=== PATIENT | male | born 1995 | race Caucasian/White ===

== ENCOUNTER 2017-09-07 20:33 | Emergency (ER) | payer BC ==
[~2017-09-07] VITALS: Ht 177.8 cm; Wt 71.0 kg
[2017-09-07 20:36] VITALS: TEMP 36.6; Ht 177.8 cm; Wt 71.0 kg
--- NOTE | 2017-09-07 21:10 | EMERGENCY ROOM VISIT NOTE ---
History First contact with patient: 20:39 Chief Complaint: NECK INJURY Stated Complaint: NECK INJURY History of Present Illness The patient is a 22 year old male who presents to the Emergency Room with complaints of neck and back pain Patient reports that about an hour and half ago suffered a injury while goofing around with his friends. He states that his friend put a dog collar and leash around his neck and pulled upward. He says that he immediately felt sharp pains down his neck and back. The patient reports that he became very worried that he seriously injured his back. He denies any weakness or loss of sensation in his extremities. Since the injury, the patient says that the pain has begun to subside, but he reports that he still feels some tenderness done the left side of his back. He denies losing consciousness or being under the influence of drugs or alcohol. Patient denies depressed mood or suicide attempt. Review of Systems see below Eyes: No worsening of vision, No eye pain Respiratory: No shortness of breath, No dyspnea on exertion Cardiovascular: No chest pain, No edema, No palpitations Neurologic: No memory loss, No paralysis, No weakness, No numbness/tingling , No vertigo, No balance problems Past Medical/Surgical History Medical Problems: (1) Laceration of right forearm (2) Lyme disease Family History Patient reports no known family medical history. Social History Smoking Status: Never Smoker Alcohol Use: occasionally Housing Status: lives with family Occupation Status: [employer] student Current/Historical Medications No Active Prescriptions or Reported Meds Physical Exam Vital Signs Date Time Temp Pulse Resp B/P (MAP) Pulse Ox O2 Delivery O2 Flow Rate FiO2 09/07/17 20:36 36.6 82 16 140/85 99 Room Air Physical Exam see below General Appearance: WD/WN, no apparent distress Head: normocephalic, atraumatic Eyes: normal inspection, PERRL, EOMI, sclerae normal ENT: normal ENT inspection Neck: supple, no adenopathy, thyroid normal Respiratory/Chest: chest non-tender, lungs clear, normal breath sounds, no respiratory distress, no accessory muscle use Cardiovascular: regular rate, rhythm, no edema, no gallop, no JVD Back: normal inspection, no CVA tenderness, no muscle spasm, normal range of motion, + pertinent finding (paraspinal tenderness at the level of t3 ) 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 COMPARISON STUDY: No previous studies for comparison. FINDINGS: There is slight reversal of the normal cervical lordosis. No fracture is identified. Disc spaces are preserved. Facet joints appear intact. Prevertebral soft tissues are unremarkable. IMPRESSION: 1. No cervical spine fracture or subluxation identified. 2. Slight reversal of the normal cervical lordosis. ED Course 2099 performed history and physical exam 2114 ordered xray of the C spine 2129 reviewed cspine xray 2209 Patient discharged Medical Decision 22 yo male comes into the ED following an injury to his neck. The patient had a normal neurological exam. He endorsed some tenderness of the cervical spine. Considering the following differential; cervical radiculopathy, cervical spine fracture, muscle strain Ordered a cervical spine xray to evaluate for structural abnormalities. Patient denies depressed mood. He denies that this was a suicide attempt. Discussed with the patient regarding his c spine xray which was unremarkable for fracture or subluxation of spine. Patient was discharged with instructions to follow up in the ED if he experiences neurologic symptoms or persistent pain. Impression Primary Impression: Neck pain Departure Information Dispostion Home / Self-Care Condition GOOD Prescriptions No Active Prescriptions or Reported Meds Referrals No Doctor, Assigned (PCP) Patient Instructions My [facility] Additional Instructions You came into the ED after a neck injury. You had a normal neuro exam and normal xray of your cervical spine. You may have pain in the days following the injury. Please follow up with your primary care physician if the pain persist. Ibuprofen(Motrin, Advil) may be used for fever or pain. Use 600mg every six hours as needed. Take with food. Avoid using more than 2400mg in a 24 hour period. Do not use 2400mg per day for more than three consecutive days without physician direction. Prolonged inappropriate use can lead to stomach upset or ulcers. This is available over the counter and typically comes in 200mg tablets. Acetaminophen(Tylenol) may be used for fever or pain. Use 1000mg every eight hours as needed. Avoid using more than 3000mg in a 24 hour period. This is available over the counter. Read all the package inserts or medication information paperwork provided. If you have any questions or concerns call your primary provider, pharmacist or the ER for assistance. Rest and avoid heavy lifting until your symptoms resolve and then gradually return to full activity. A good rule of thumb is if it hurts your back to perform a certain activity, then it should be avoided until you are healthy again. A heating pad, warm compresses, or a hot shower may help with tight muscles and can be done several times a day as needed. Continue current medications. Return to the ER immediately for any numbness, tingling, severe pain, loss of control of your bowels or bladder, inability to walk, or as needed. Follow up with your primary care physician within 3-5 days for a recheck of your current condition
--- NOTE | 2017-09-07 21:17 | EMERGENCY ROOM VISIT NOTE ---
History Report prepared by Scribe: Maureen Chaney Under the Supervision of: Dr. Seda Mario M.D. 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 He states he and his friends were "horsing around" and a dog collar was accidentally pulled over his neck and he felt a "shocking pain" in his neck and up his back. He rates his pain as a 3/10 in severity. He denies any LOC. He denies any other injuries being sustained during the incident. Source of History: patient Onset: 1 hour MANAGER ZONE Position: neck Symptom Intensity: 3/10 Timing: constant Associated Symptoms: + back pain, No LOC Review of Systems See HPI for pertinent positives & negatives. A total of 6 systems reviewed and were otherwise negative. Past Medical & Surgical Medical Problems: (1) Laceration of right forearm (2) Lyme disease Family History Patient reports no known family medical history. Social History Smoking Status: Never Smoker Alcohol Use: occasionally Drug Use: none Marital Status: single Housing Status: lives with family Occupation Status: [employer] student Current/Historical Medications No Active Prescriptions or Reported Meds Allergies Coded Allergies: Clindamycin (Verified Allergy, Unknown, hives, 09/02/16) Penicillins (Unverified Allergy, Unknown, mother has allergy, 09/02/16) Uncoded Allergies: TREE NUTS (Allergy, Severe, ANAPHYLAXIS, 09/07/17) Physical Exam Vital Signs Date Time Temp Pulse Resp B/P (MAP) Pulse Ox O2 Delivery O2 Flow Rate FiO2 09/07/17 22:01 75 16 117/92 100 09/07/17 20:36 36.6 82 16 140/85 99 Room Air Physical Exam Vital signs reviewed. General: Well-appearing 22 year old male, in no significant distress. HEENT: No scleral ejection, PERRLA, neck supple. Atraumatic. Cardiovascular: Regular rate and rhythm, no extra sounds. Pulmonary: Clear to auscultation bilaterally, normal work of breathing. Musculoskeletal: Atraumatic, cervical thoracic and lumbar spines are nontender, no step-off or deformity.. Neurologic: Patient awake alert and oriented x 3, full strength in all 4 extremities. Cranial nerves 2 through 12 grossly intact. Skin: Warm, dry, no rash, atraumatic. Medical Decision & Procedures ER Provider Diagnostic Interpretation: Radiology results as stated below per my review and radiologist interpretation: CERVICAL SPINE 2 OR 3 VIEWS CLINICAL HISTORY: Neck pain following injury. COMPARISON STUDY: No previous studies for comparison. FINDINGS: There is slight reversal of the normal cervical lordosis. No fracture is identified. Disc spaces are preserved. Facet joints appear intact. Prevertebral soft tissues are unremarkable. IMPRESSION: 1. No cervical spine fracture or subluxation identified. 2. Slight reversal of the normal cervical lordosis. Electronically signed by: Ahsan Leal M.D. 09/07/2017 9:41 PM ED Course 2100: Past medical records reviewed. The patient was evaluated in room D6. A complete history and physical examination was performed. 2200: I reevaluated the patient. He is feeling well and resting comfortably. I discussed his results and discharge instructions and he verbalized complete understanding and agreement. Medical Decision Differential diagnosis: Radiculopathy, bony fracture, ligamentous injury, disc herniation. This patient was evaluated and appeared to be in no significant distress. Physical examination is fairly unrevealing. There is no evidence of soft tissue injury. The patient only has mild muscular discomfort of the left mid thoracic paraspinous muscles with forward flexion of the neck. The mechanism of injury does not seem to be significant. He denies any suicidal thoughts or attempts. This was accidental with horseplay. Cervical spine x-rays were performed and are negative for acute injury. Patient was informed of the findings and will be discharged. He can use ibuprofen as needed for pain and will follow-up with [facility] as needed. He will return to the ER for worsening of symptoms or any medical concerns. Medication Reconcilliation Current Medication List: was personally reviewed by me Blood Pressure Screening Patient's blood pressure: Elevated blood pressure Blood pressure disposition: Elevated BP felt to be situational Impression Primary Impression: Cervical strain, acute Scribe Attestation The scribe's documentation has been prepared under my direction and personally reviewed by me in its entirety. I confirm that the note above accurately reflects all work, treatment, procedures, and medical decision making performed by me. Departure Information Dispostion Home / Self-Care Prescriptions No Active Prescriptions or Reported Meds Referrals No Doctor, Assigned (PCP) Patient Instructions My [facility] Additional Instructions You came into the ED after a neck injury. You had a normal neuro exam and normal xray of your cervical spine. You may have pain in the days following the injury. Please follow up with your primary care physician if the pain persist. Ibuprofen(Motrin, Advil) may be used for fever or pain. Use 600mg every six hours as needed. Take with food. Avoid using more than 2400mg in a 24 hour period. Do not use 2400mg per day for more than three consecutive days without physician direction. Prolonged inappropriate use can lead to stomach upset or ulcers. This is available over the counter and typically comes in 200mg tablets. Acetaminophen(Tylenol) may be used for fever or pain. Use 1000mg every eight hours as needed. Avoid using more than 3000mg in a 24 hour period. This is available over the counter. Read all the package inserts or medication information paperwork provided. If you have any questions or concerns call your primary provider, pharmacist or the ER for assistance. Rest and avoid heavy lifting until your symptoms resolve and then gradually return to full activity. A good rule of thumb is if it hurts your back to perform a certain activity, then it should be avoided until you are healthy again. A heating pad, warm compresses, or a hot shower may help with tight muscles and can be done several times a day as needed. Continue current medications. Return to the ER immediately for any numbness, tingling, severe pain, loss of control of your bowels or bladder, inability to walk, or as needed. Follow up with your primary care physician within 3-5 days for a recheck of your current condition
--- NOTE | 2017-09-07 21:42 | DIAGNOSTIC IMAGING REPORT ---
CERVICAL SPINE 2 OR 3 VIEWS CLINICAL HISTORY: Neck pain following injury. COMPARISON STUDY: No previous studies for comparison. FINDINGS: There is slight reversal of the normal cervical lordosis. No fracture is identified. Disc spaces are preserved. Facet joints appear intact. Prevertebral soft tissues are unremarkable. IMPRESSION: 1. No cervical spine fracture or subluxation identified. 2. Slight reversal of the normal cervical lordosis. Electronically signed by: Ahsan Leal M.D. 09/07/2017 9:41 PM Dictated Date/Time: 09/07/2017 9:40 PM
[2017-09-07 22:01] VITALS: BP 117/92; PULSE 75; O2SAT 100
== END 2017-09-07 22:00 | disposition home or self-care (01) ==
LOC: C.EDB 20:34 → C.EDD 22:00
DX: S16.1XXA Strain of muscle, fascia and tendon at neck level, initial encounter (principal); X50.0XXA Overexertion from strenuous movement or load, initial encounter; Y93.83 Activity, rough housing and horseplay